=== PATIENT | male | born 1965 | race Caucasian/White ===

== ENCOUNTER 2018-07-11 09:46 | Emergency (ER) | payer SELFPAY ==
[~2018-07-11 09:46] MED LIST: CYCL10TA29 PO; KET10 PO; LOR5/325 PO; OMEP-114 PO; OXYC-865 PO; PENI-24 PO
[2018-07-11] MEDS ORDERED: ACETAMINOPHEN 500 MG TAB PO ONE (10:15)
[2018-07-11] MEDS ORDERED: traMADol 50 MG TAB PO ONE (10:15)
--- NOTE | 2018-07-11 10:28 | EKG ---
FACILITY: [facility] PATIENT NAME: ROBERT MARTÍNEZ : [id number] MR: [id number] V: [id number] EXAM DATE: ORDERING PHYSICIAN: CRISTIAN GRADY TECHNOLOGIST: Test Reason : lightheaded Blood Pressure : / mmHG Vent. Rate : 073 BPM Atrial Rate : 073 BPM P-R Int : 186 ms QRS Dur : 096 ms QT Int : 402 ms P-R-T Axes : 053 022 033 degrees QTc Int : 442 ms Normal sinus rhythm Normal ECG No previous ECGs available Confirmed by DAVIAN TERAN ([id number]) on 07/11/2018 6:55:56 PM Referred By: Confirmed By:DAVIAN TERAN
[2018-07-11 10:32] LABS: PLATELET COUNT, AUTOMATED 263 K/uL (150-450)
--- NOTE | 2018-07-11 10:38 | ER Report ---
History and Physical Time Seen By MD: 09:55 Hx. of Stated Complaint: Pt c/o leg pain radiating from buttocks down leg, also localized to posterior L knee. Also c/o periods of "lost focus" where vision blurred, "almost like I was spinning." First onset of these episodes 1 week ago. HPI/ROS CHIEF COMPLAINT: 1) left leg pain/paresthesias 2) dizziness HISTORY OF PRESENT ILLNESS: Patient presents with 2 chief complaints. Patient noted about 30 minutes after awakening this morning that he had left leg pain that extends from the back of the knee to the hip and includes pain in the deep buttocks. He also noticed is some numbness/paresthesias from the back of the knee to the plantar surface of the foot and laterally. Patient has not had similar symptoms before though he does note ongoing chronic back pain for which he takes ibuprofen daily. 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 Patient also notes that he has had 2 episodes of spinning's and dizziness in the past week. Patient was first at a football game and notes that he had been drinking a couple beers when he developed episode of spinning and was unable to concentrate. States these symptoms lasted for a few hours then ultimately went away. Patient felt fine until last evening when he was sitting and watching a football game. He was again drinking a beer and noticed that he had some spinning and inability concentrate. Patient states he went to bed and symptoms were not present in the morning. Patient denies headache, chest pain, shortness breath or focal weakness or numbness that are associated with these symptoms. Patient has never had similar prior symptoms. Patient has no known family history of stroke a young age or of VTE. Patient has not had cardiac problems in the past. Patient does have history of high blood pressure and was supposed to be on blood pressure medications but has not taken these in a few years. REVIEW OF SYSTEMS: Constitutional: No fever, no chills. Eyes: No discharge. ENT: No sore throat. Cardiovascular: No chest pain, no palpitations. Respiratory: No cough, no shortness of breath. Gastrointestinal: No abdominal pain, no vomiting. Genitourinary: No hematuria. Musculoskeletal: chronic back pain. No new/diff symtpoms. Skin: No rashes. Neurological: No headache. Allergies: Coded Allergies: No Known Drug Allergies (Unverified , 9/21/18) Home Meds Active Scripts Methocarbamol (ROBAXIN) 500 Mg Tablet, 500 MG PO TID for Muscle Relaxant for 7 Days, #30 TAB Prov:CRISTIAN GRADY MD 07/11/18 Hydrochlorothiazide (HYDROCHLOROTHIAZIDE) 25 Mg Tablet, 1 TAB PO QDAY for 30 Days, #30 TAB Prov:CRISTIAN GRADY MD 07/11/18 Reported Medications Ibuprofen (IBUPROFEN) 800 Mg Tablet, 1 TAB PO QAM, TAB 07/11/18 Multivitamin With Minerals (MULTIPLE VITAMIN) 1 Each Tablet, 1 EACH PO DAILY, TAB 07/11/18 Diphenhydramine Hcl (BENADRYL ALLERGY) 25 Mg Tablet, 25 MG PO Q6-8H PRN for ALLERGY SYMPTOMS, TAB 07/11/18 Omeprazole (PRILOSEC) 20 Mg Capsule.dr, 1 TAB PO QDAY TAKE ONE TABLET BY MOUTH ONCE A DAY 12/05/14 Discontinued Scripts Penicillin V Potassium 500 Mg Tab (PENICILLIN V POTASSIUM 500 MG TAB) 500 Mg Tablet, 500 MG PO QID, #40 TAB 0 Refills Prov:AMARJIT BIGGS MD 01/14/15 Ketorolac Tromethamine (KETOROLAC TROMETHAMINE) 10 Mg Tab, 10 MG PO Q6H, #12 TAB 0 Refills Prov:AMARJIT BIGGS MD 01/14/15 Oxycodone Hcl/Acetaminophen (PERCOCET 5-325 MG TABLET) 1 Each Tablet, 1 EACH PO Q4H PRN for PAIN, #15 TAB 0 Refills Prov:AMARJIT BIGGS MD 01/14/15 Oxycodone Hcl/Acetaminophen (PERCOCET 5-325 MG TABLET) 1 Each Tablet, 1 EACH PO Q4-6H PRN for PAIN, #14 Prov:KWASI REYNOLDS MD 12/05/14 Social History of pt drinks 1-2 beers daily, chews tobacco, denies drugs Hx Smoking: No Smoking Status: Never Smoker Exposure to Second Hand Smoke?: No Hx Substance Use Disorder: No Hx Alcohol Use: Yes Constitutional Vital Sign - Last 24 Hours 07/11/18 07/11/18 07/11/18 07/11/18 09:53 09:53 09:55 10:00 Temp 98.1 Pulse 78 Resp 18 B/P (MAP) 174/139 181/124 (143) 182/123 (142) 174/139 (151) Pulse Ox 97 O2 Delivery Room Air 07/11/18 07/11/18 07/11/18 07/11/18 10:01 10:06 10:08 10:11 Pulse 72 75 76 Resp 8 9 13 B/P (MAP) 174/132 (146) Pulse Ox 97 96 96 07/11/18 07/11/18 07/11/18 07/11/18 10:15 10:16 10:21 10:26 Pulse 75 71 70 Resp 14 10 10 B/P (MAP) 160/113 (129) Pulse Ox 95 95 95 07/11/18 07/11/18 07/11/18 07/11/18 10:30 10:31 10:45 10:51 Pulse 69 67 Resp 9 B/P (MAP) 146/118 (127) 151/122 (132) Pulse Ox 96 07/11/18 07/11/18 07/11/18 07/11/18 10:56 11:00 11:01 11:06 Pulse 67 69 63 Resp 11 10 12 B/P (MAP) 154/107 (123) Pulse Ox 95 95 96 07/11/18 07/11/18 07/11/18 07/11/18 11:11 11:15 11:16 11:21 Pulse 63 70 60 Resp 14 11 11 B/P (MAP) 154/106 (122) Pulse Ox 94 96 95 07/11/18 07/11/18 07/11/18 07/11/18 11:26 11:30 11:31 11:36 Pulse 68 69 64 Resp 12 10 10 B/P (MAP) 164/111 (128) Pulse Ox 95 93 96 07/11/18 07/11/18 07/11/18 07/11/18 11:41 11:45 11:46 11:51 Pulse 66 66 63 Resp 12 11 14 B/P (MAP) 170/111 (130) Pulse Ox 94 95 93 07/11/18 07/11/18 07/11/18 07/11/18 11:56 12:00 12:01 12:06 Pulse 64 61 65 Resp 10 9 14 B/P (MAP) 171/122 (138) Pulse Ox 96 95 96 07/11/18 07/11/18 07/11/18 07/11/18 12:11 12:15 12:16 12:21 Pulse 62 66 70 Resp 12 10 14 B/P (MAP) 171/114 (133) 07/11/18 07/11/18 07/11/18 07/11/18 12:26 12:30 12:31 12:36 Pulse 59 70 68 Resp 10 11 19 B/P (MAP) 167/115 (132) 07/11/18 07/11/18 07/11/18 07/11/18 12:45 13:00 13:06 13:15 Pulse 66 Resp 18 B/P (MAP) 166/119 (135) 165/108 (127) 159/120 (133) Physical Exam General Appearance: The patient is alert, has no immediate need for airway protection and no signs of toxicity. [ ] Eyes: Pupils equal and round no pallor or injection. ENT, Mouth: Mucous membranes are moist. Respiratory: There are no retractions, lungs are clear to auscultation. Cardiovascular: Regular rate and rhythm. no m/r/g, no carotid bruit Gastrointestinal: Abdomen is soft and non tender, no masses, bowel sounds normal. No pulsatile abd mass Neurological: alert, oriented x 4; cn ii-xii intact, nl fnf, no ddk, nl reflexes, 5/5 ms ue = le, nl sensation. No aphasia. Skin: Warm and dry, no rashes. Musculoskeletal: Neck is supple non tender. Extremities are nontender, nonswollen and have full range of motion. DIFFERENTIAL DIAGNOSIS: After history and physical exam differential diagnosis was considered for cva, hypertensive emergency, acs, vte, electrolyte disorder, or other emergent etiology Medical Decision Making Data Points Result Diagram: 07/11/18 1025 07/11/18 1025 Laboratory Hematology Test 07/11/18 10:25 Red Blood Count 5.20 M/uL (4.00-5.60) Mean Corpuscular Volume 95.6 fL (80.0-96.0) Mean Corpuscular Hemoglobin 32.9 pg (26.0-33.0) Mean Corpuscular Hemoglobin Concent 34.4 g/dL (32.0-36.0) Red Cell Distribution Width 12.3 % (11.5-14.5) Mean Platelet Volume 8.4 fL (7.2-11.1) Neutrophils (%) (Auto) 62.9 % (39.4-72.5) Lymphocytes (%) (Auto) 22.4 % (17.6-49.6) Monocytes (%) (Auto) 11.5 % (4.1-12.4) Eosinophils (%) (Auto) 2.5 % (0.4-6.7) Basophils (%) (Auto) 0.7 % (0.3-1.4) Nucleated RBC Relative Count (auto) 0.1 /100WBC Neutrophils # (Auto) 3.7 K/uL (2.0-7.4) Lymphocytes # (Auto) 1.3 K/uL (1.3-3.6) Monocytes # (Auto) 0.7 K/uL (0.3-1.0) Eosinophils # (Auto) 0.1 K/uL (0.0-0.5) Basophils # (Auto) 0.0 K/uL (0.0-0.1) Nucleated RBC Absolute Count (auto) 0.01 K/uL Sodium Level 141 mmol/L (137-145) Potassium Level 4.1 mmol/L (3.5-5.0) Chloride Level 101 mmol/L (98-107) Carbon Dioxide Level 29 mmol/L (22-30) Blood Urea Nitrogen 14 mg/dl (9-21) Creatinine 1.00 mg/dl (0.66-1.25) Glomerular Filtration Rate Calc > 60.0 Random Glucose 98 mg/dl (75-110) Calcium Level 8.9 mg/dl (8.4-10.2) Magnesium Level 2.1 mg/dl (1.7-2.2) Total Bilirubin 0.6 mg/dl (0.2-1.3) Aspartate Amino Transf (AST/SGOT) 49 U/L (0-35) Alanine Aminotransferase (ALT/SGPT) 66 U/L (0-56) Alkaline Phosphatase 62 U/L (0-126) Troponin I < 0.012 ng/ml Total Protein 7.8 g/dl (6.3-8.2) Albumin 4.3 g/dl (3.5-5.0) Chemistry Test 07/11/18 10:25 White Blood Count 5.8 k/uL (4.5-11.0) Red Blood Count 5.20 M/uL (4.00-5.60) Hemoglobin 17.1 g/dL (14.0-18.0) Hematocrit 49.7 % (42.0-52.0) Mean Corpuscular Volume 95.6 fL (80.0-96.0) Mean Corpuscular Hemoglobin 32.9 pg (26.0-33.0) Mean Corpuscular Hemoglobin Concent 34.4 g/dL (32.0-36.0) Red Cell Distribution Width 12.3 % (11.5-14.5) Platelet Count 263 K/uL (150-450) Mean Platelet Volume 8.4 fL (7.2-11.1) Neutrophils (%) (Auto) 62.9 % (39.4-72.5) Lymphocytes (%) (Auto) 22.4 % (17.6-49.6) Monocytes (%) (Auto) 11.5 % (4.1-12.4) Eosinophils (%) (Auto) 2.5 % (0.4-6.7) Basophils (%) (Auto) 0.7 % (0.3-1.4) Nucleated RBC Relative Count (auto) 0.1 /100WBC Neutrophils # (Auto) 3.7 K/uL (2.0-7.4) Lymphocytes # (Auto) 1.3 K/uL (1.3-3.6) Monocytes # (Auto) 0.7 K/uL (0.3-1.0) Eosinophils # (Auto) 0.1 K/uL (0.0-0.5) Basophils # (Auto) 0.0 K/uL (0.0-0.1) Nucleated RBC Absolute Count (auto) 0.01 K/uL Glomerular Filtration Rate Calc > 60.0 Calcium Level 8.9 mg/dl (8.4-10.2) Magnesium Level 2.1 mg/dl (1.7-2.2) Total Bilirubin 0.6 mg/dl (0.2-1.3) Aspartate Amino Transf (AST/SGOT) 49 U/L (0-35) Alanine Aminotransferase (ALT/SGPT) 66 U/L (0-56) Alkaline Phosphatase 62 U/L (0-126) Troponin I < 0.012 ng/ml Total Protein 7.8 g/dl (6.3-8.2) Albumin 4.3 g/dl (3.5-5.0) EKG/Imaging EKG Interpretation 12 lead EKG: Rhythm: Normal sinus rhythm [place]: Normal QRS: Normal ST segments: Normal Monitor Interpretation: Normal Sinus Rhythm ED Course/Re-evaluation ED Course Pt presents with what initially appear to be 2 distinct symptoms 1) LLE findings c/w poss sciatica; considered cva but nl neuro exam despite sympotms. Will manage supportively. Pt improved in ED and ambulates with minimal discomfort on d/c. 2) vertigo/dizziness concerning for htn encephalopathy given pt's uncontrolled blood pressure; ed eval to r/o cva/end organ damage. After ED evaluation, re- evaluation, no e/o end organ damage, and htn improves spontaneously. Pt does not have recurrence of symptoms in ED. 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 Decision to Disposition Date: Jul 12, 2018 Decision to Disposition Time: 13:15 Depart Departure Latest Vital Signs Vital Signs Date Time Temp Pulse Resp B/P (MAP) Pulse Ox O2 Delivery O2 Flow Rate FiO2 07/11/18 13:15 159/120 (133) 07/11/18 13:06 66 18 07/11/18 12:06 96 07/11/18 09:53 98.1 Room Air Impression: Primary Impression: Sciatica Additional Impression: Hypertension Condition: Improved Disposition: HOME OR SELF-CARE New Scripts Methocarbamol (ROBAXIN) 500 Mg Tablet 500 MG PO TID for Muscle Relaxant for 7 Days, #30 TAB Prov: CRISTIAN GRADY MD 07/11/18 Hydrochlorothiazide (HYDROCHLOROTHIAZIDE) 25 Mg Tablet 1 TAB PO QDAY for 30 Days, #30 TAB Prov: CRISTIAN GRADY MD 07/11/18 Patient Instructions: Abuse of Alcohol (ED), Hypertension (ED), Sciatica (ED) Additional Instructions: As we discussed; start the blood pressure medication; hctz (hydrochlorothiazide) but follow up with your primary doctor as soon as possible 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 Return for new/different or concerning symptoms. Problem Qualifiers Primary Impression: Sciatica Laterality: left Qualified Codes: M54.32 - Sciatica, left side Additional Impression: Hypertension Hypertension type: unspecified Qualified Codes: I10 - Essential (primary) hypertension CRISTIAN GRADY MD Jul 11, 2018 10:38
[2018-07-11] MEDS ORDERED: MULT-1335 PO (10:54)
[2018-07-11] MEDS ORDERED: IBUP800T37 PO (10:54)
[2018-07-11] MEDS ORDERED: DIPH-741 PO (10:54)
--- NOTE | 2018-07-11 10:55 | RADIOLOGY IMAGING REPORT ---
FACILITY: [facility] - [place] PATIENT NAME: Raza Chacon : 1965 MR: [id number] V: [id number] EXAM DATE: ORDERING PHYSICIAN: CRISTIAN GRADY TECHNOLOGIST: Location[place] [facility] [place] Patient: Raza Chacon : 1965 Visit/Account:[id number] Date of Sevice: 07/11/2018 Study: Frontal and lateral views of the chest Indication: Cough Comparison study: None Findings: PA and lateral views of the chest demonstrate no evidence of acute infiltrate. There is no evidence of pleural effusion. There is no evidence of pneumothorax. The mediastinal, cardiac, and diaphragmatic contours are unremarkable. The visualized bony structures are unremarkable. IMPRESSION: Unremarkable chest. Report Dictated By: Gabe Atkinson at 07/11/2018 10:50 AM Report E-Signed By: Gabe Atkinson at 07/11/2018 10:51 AM WSN:[id number]
--- NOTE | 2018-07-11 11:04 | RADIOLOGY IMAGING REPORT ---
FACILITY: [facility] PATIENT NAME: Raza Chacon : 1965 MR: [id number] V: [id number] EXAM DATE: ORDERING PHYSICIAN: CRISTIAN GRADY TECHNOLOGIST: Location: [facility] - [place] Patient: Raza Chacon : 1965 Visit/Account:[id number] Date of Sevice: 07/11/2018 EXAMINATION: CT Head without intravenous contrast HISTORY: Altered mental status. TECHNIQUE: Axial images were obtained from the skull base to the vertex without intravenous contrast . Sagittal and coronal reformatted images are also submitted. One of the following dose optimization techniques was utilized in the performance of this exam: Autom ated exposure control; adjustment of the mA and/or kV according to the patient's size; or use of an i terative reconstruction technique. Specific details can be referenced in the facility's radiology C T exam operational policy. COMPARISON: None available. FINDINGS: Brain volume: Normal. Ventricles: Negative. Acute ischemic changes: None. Hemorrhage: None. Masses / edema: None. Daniel-white: Negative. White matter: Negative. Vessels: Negative. Extra-axial: Negative. Calvarium / skull base: Negative. Visualized sinuses / orbits: Mild left mastoid effusion. Mild mucosal thickening in the ethmoid air cells and sphenoid sinuses. IMPRESSION: No acute intracranial abnormality. Report Dictated By: Ernie Seo MD at 07/11/2018 10:55 AM Report E-Signed By: Ernie Seo MD at 07/11/2018 10:59 AM WSN:[id number]
[2018-07-11] MEDS ORDERED: KETOROLAC 15 MG/ML VIAL IVP ONE (11:30)
--- NOTE | 2018-07-11 13:00 | RADIOLOGY IMAGING REPORT ---
FACILITY: [facility] PATIENT NAME: Raza Chacon : 1965 MR: [id number] V: [id number] EXAM DATE: ORDERING PHYSICIAN: CRISTIAN GRADY TECHNOLOGIST: Location: [facility] - [place] Patient: Raza Chacon : 1965 Visit/Account:[id number] Date of Sevice: 07/11/2018 VENOUS DOPP LOW LEFT EXTREMITY HISTORY: popliteal pain , left posterior knee pain since 0600 hours Concern for deep venous thrombus . COMPARISON: None. FINDINGS: Grayscale, duplex and color Doppler interrogation of the left lower extremity deep veins from common femoral vein to proximal calf was completed. Compression was performed where it was possible. The rig ht common femoral vein was evaluated using similar technique. After an indeterminate structure was noted on image 31 of the initial acquisition I requested that e manager placement obtain additional images. Common femoral vein - Negative. Femoral vein - Negative. Deep femoral vein - Negative. Popliteal vein - Negative. Visualized deep calf veins - Negative. Popliteal fossa: No evidence of a Cage's cyst or mass. Within the posterior musculature labeled "lef t posterior knee superficial vein" there is a paired artery/vein, both patent, exact anatomic locatio n unclear on the basis of ultrasound, perhaps gastrocnemius artery/vein. The vein is significantly la rger than the artery consistent with an intramuscular varicosity. Contralateral (right) common femoral vein: Negative. IMPRESSION: 1. No evidence of acute deep venous thrombosis in the visualized veins of the left lower extremity. 2. Patent intramuscular venous varicosity in the left posterior knee soft tissues. Report Dictated By: Anibal Díaz at 07/11/2018 12:25 PM Report E-Signed By: Anibal Díaz at 07/11/2018 12:55 PM WSN:[id number]
[2018-07-11] MEDS ORDERED: HYDR-2966 PO (13:07)
[2018-07-11] MEDS ORDERED: METH-542 PO (13:07)
[2018-07-11 13:15] VITALS: BP 159/120
== END 2018-07-11 13:22 | disposition home or self-care (01) ==
LOC: ER 09:59
DX: M54.32 Sciatica, left side (principal); I10 Essential (primary) hypertension
CPT/HCPCS: 70450; 71046; 83735; 84484; 85025; 93005; 93971; 96374; 99285; J1885; 82040; 82247; 82310; 82374; 82435; 82565; 82947; 84075; 84132; 84155; 84295; 84450; 84460; 84520

== ENCOUNTER 2019-03-30 00:33 | Emergency (ER) | payer OTHER ==
[~2019-03-30 00:33] MED LIST changes: +DIPH-741 PO; +HYDR-2966 PO; +IBUP800T37 PO; +METH-542 PO; +MULT-1335 PO
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
[2019-03-30 02:14] LABS: PLATELET COUNT, AUTOMATED 290 K/uL (150-450)
--- NOTE | 2019-03-30 03:21 | RADIOLOGY IMAGING REPORT ---
FACILITY: [facility] [place] PATIENT NAME: Raza Chacon : 1965 MR: [id number] V: [id number] EXAM DATE: ORDERING PHYSICIAN: AMARJIT BIGGS TECHNOLOGIST: Location: [facility] [place] Patient: Raza Chacon : 1965 Visit/Account:[id number] Date of Sevice: 03/30/2019 SACRUM COCCYX HISTORY: Tailbone pain. No known injury. COMPARISON: Prior lumbar spine x-rays 08/05/2014. Lumbar spine x-rays were performed at the same time as the current examination. TECHNIQUE: AP and lateral views of the sacrum and coccyx. FINDINGS: There is no fracture or dislocation. There is anterior curvature of the coccyx, unchanged. No bony erosion or destruction. The sacroiliac joints are patent without widening. There is no pubic diastases. There are pelvic phle boliths. IMPRESSION: 1. No acute osseous abnormality of the sacrum or coccyx. Report Dictated By: Zoraida Bashir at 03/30/2019 3:14 AM Report E-Signed By: Zoraida Bashir at 03/30/2019 3:16 AM WSN:[id number]
--- NOTE | 2019-03-30 03:22 | RADIOLOGY IMAGING REPORT ---
FACILITY: [facility] - [place] PATIENT NAME: Raza Chacon : 1965 MR: [id number] V: [id number] EXAM DATE: ORDERING PHYSICIAN: AMARJIT BIGGS TECHNOLOGIST: Location: [facility] Patient: Raza Chacon : 1965 Visit/Account:[id number] Date of Sevice: 03/30/2019 LUMBAR SPINE 2 OR 3 VIEW HISTORY: Tailbone pain. No injury. COMPARISON: Lumbar spine x-rays 08/05/2014. Sacrum and coccyx x-rays were performed at the same time as the current examination. TECHNIQUE: AP, lateral, and coned lateral views of the lumbar spine. FINDINGS: There are 5 nonrib-bearing lumbar type vertebral bodies. Vertebral body heights are maintai diana. There is straightening of the normal lumbar lordosis, unchanged. There is multilevel degenerativ e disc disease that has mildly progressed. Greatest loss of disc height is at L4-5, where it is moder ate to severe. IMPRESSION: 1. Progression of degenerative changes, but no acute osseous abnormality of the lumbar spine. Report Dictated By: Zoraida Bashir at 03/30/2019 3:16 AM Report E-Signed By: Zoraida Bashir at 03/30/2019 3:18 AM WSN:[id number]
[2019-03-30 03:36] VITALS: BP 120/95
--- NOTE | 2019-03-30 03:42 | BHS - Psychiatric Evaluation ---
ER - Title 25 MHE Evaluation Title 25 Evaluation Patient Detained By: Law Enforcement Referral Source: [facility] who [facility] Date Patient Detained: Mar 30, 2019 Time Patient Detained: 00:36 Date Penitentiary Expires: Apr 02, 2019 Time Penitentiary Expires: 00:36 Legal Status: Police Hold: No Legal Status: Residence: [facility] Resident, State Resident Assessment Data Provided By: Patient, Law Enforcement HPI/ROS: CHIEF COMPLAINT: emergency retirement, suicide ideation HISTORY OF PRESENT ILLNESS: This is a 53 year old male. He has been suicidal for a long time now. Feeling hopeless, to the point where he does not think there is much that can be done. He drank bleach and took a large amount of Xanax several days ago. Said it made him sleepy for a few days. He does drink alot on a chronic basis. He took a bunch of cold medicines a few days ago, no effect. Today drinking heavily and was going to try to kill himself with a knife, but was unable to do it. [facility], who [facility], who brought him here. He is on emergency retirement. He is cooperative and willing to receive help, but does not think it will do any good. He did have a fall a few days ago and has severe tailbone and lower back pain. Chronic sinus problems, otherwise negative REVIEW OF SYSTEMS: Respiratory: No cough, no dyspnea. Cardiovascular: No chest pain, no palpitations. Gastrointestinal: No vomiting, no abdominal pain. Musculoskeletal: As above. Admit due to SI or Attempt: Yes Suicide Plan: Has Plan with Access Alcohol or Drugs Involved: Yes Is Patient Info Reliable: Yes Is Collateral Info Reliable: Yes Mental Status Exam General Appearance: Good Eye Contact, Cooperative, Polite Speech: Spontaneous, Normal Rate, Normal Rhythm, Normal Volume, Normal Tone Mood: Dysthmic/Depressed Affect: Sad Thought Process: Organized, Logical Thought Content: Suicidal Ideation; No Homicidal Ideation Sensorium: Other Cognition: Alert & Oriented-Person, Alert & Oriented-Place, Alert & Oriented- Time, Cscup-Yteemtqs-Ekszeumfi Insight Judgment: Fair Current Risk & History Current Dangerous Risk Assessm: Current Suicide Ideation, Self-Injurious Behaviors Past Dangerous Risk Assessm: Suicide Ideation-last 6mo, Suicide Attempts-last 6mo, Self-Injurious Behaviors Previous Suicide Attempt: Past - High Lethality Previous Psychiatric Illness: Yes Previous Psychiatric Treatment: Yes Risk Assessment & Disposition Evaluated Risk Assessment: patient has multiple attempts as noted, hopeless feeling Impression: Primary Impression: Suicidal ideation Additional Impression: Low back pain Meets Mental Illness Req.: Yes Meets Dangerousness Req.: Yes Emergency Penitentiary to be: Upheld Date of Decision: Mar 30, 2019 Time of Decision: 02:26 Patient is Medically Stable at: Yes Disposition: [facility] Problem Qualifiers Additional Impression: Low back pain Chronicity: acute Back pain laterality: bilateral Sciatica presence: without sciatica Qualified Codes: M54.5 - Low back pain AMARJIT BIGGS MD Mar 30, 2019 03:42
[2019-03-31] MEDS ORDERED: OMEP-218 PO (13:42)
[2019-03-31] MEDS ORDERED: MULT1CAP59 PO (13:42)
[2019-03-31] MEDS ORDERED: DIPH-740 PO (13:42)
[2019-03-31] MEDS ORDERED: IBUP-56 PO (13:42)
== END 2019-03-30 03:45 ==
LOC: ER 01:18 → EDBEDREQTM 03:32 → ER 03:45
DX: R45.851 Suicidal ideations (principal); F10.10 Alcohol abuse, uncomplicated; Y90.6 Blood alcohol level of 120-199 mg/100 ml; M54.5 Low back pain
CPT/HCPCS: 36415; 72100; 72220; 80305; 80320; 80329; 81001; 82040; 82247; 82310; 82374; 82435; 82565; 82947; 83735; 84075; 84132; 84155; 84295; 84443; 84450; 84460; 84520; 85025; 99284

== ENCOUNTER 2019-03-30 02:01 | Inpatient (IN) | payer OTHER ==
[2019-03-29 08:49] VITALS: BP 141/96
[~2019-03-30] VITALS: Ht 185.4 cm; Wt 129.3 kg
[2019-03-30 04:38] VITALS: BP 146/113
[2019-03-30] MEDS ORDERED: ACETAMINOPHEN 325 MG TAB PO PRN (05:20)
[2019-03-30] MEDS ORDERED: MAG HYD/AL HYD/SIMETH 30ML UDC PO PRN (05:20)
[2019-03-30] MEDS: MULTIVITAMINS TAB PO SCH (08:47)
[2019-03-30] MEDS ORDERED: DIAZEPAM 10 MG TAB PO PRN (11:00)
[2019-03-30] MEDS: DIAZEPAM 10 MG TAB PO PRN ×2 (11:49→21:08)
[2019-03-30] MEDS ORDERED: DULoxetine HCL 30 MG CAPCR PO ONE (12:00)
[2019-03-30] MEDS: PANTOPRAZOLE SOD 20 MG TABEC PO SCH (12:33)
[2019-03-30] MEDS ORDERED: SALINE 0.65% NAS SPR 44 ML BTL PRN (13:00)
[2019-03-30 13:14] VITALS: BP 135/85
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
[2019-03-31 03:20] VITALS: BP 130/84
[2019-03-31] MEDS: DIAZEPAM 10 MG TAB PO PRN (03:23)
[2019-03-31 07:15] VITALS: BP 124/78
[2019-03-31] MEDS: DULoxetine HCL 30 MG CAPCR PO SCH (08:18)
[2019-03-31] MEDS: MULTIVITAMINS TAB PO SCH (08:18)
[2019-03-31] MEDS: PANTOPRAZOLE SOD 20 MG TABEC PO SCH (08:18)
[2019-03-31 11:20] VITALS: BP 128/86
[2019-03-31] MEDS ORDERED: DIPH-740 PO (13:42)
[2019-03-31] MEDS ORDERED: IBUP-56 PO (13:42)
[2019-03-31] MEDS ORDERED: OMEP-218 PO (13:42)
[2019-03-31] MEDS ORDERED: MULT1CAP59 PO (13:42)
--- NOTE | 2019-03-31 14:19 | BHS Progress Note ---
[facility] - Subjective Progress Notes Subjective Pt seen in conference room with team. Pt reports improved mood today, rating depression at 4/10, and denies SI today. Tolerating cymbalta well without SE. Slept well last night. He is still detoxing but sx's have been mild. He felt well supported by an AA meeting yesterday run here on the unit by a volunteer from . In response to our concern that he has been extremely isolated (one of his several high risk factors for suicide) he did agree to involve his brother and his step son in treatment team meeting tomorrow. His back pain is actually a little better this am, so we will forgo neurontin and continue to titrate cymbalta. His continuous pulse ox did show possible concern for sleep apnea, so we recommended he follow up with a sleep study after discharge. Suicidal Ideation: Resolving Homicidal Ideation: None [facility] - Objective Physical Exam Vital Signs Vital Signs 03/31/19 03/31/19 07:15 11:20 Temp 97.1 Pulse 61 Resp 18 B/P (MAP) 128/86 (100) Pulse Ox 94 O2 Delivery Room Air Muscle Strength and Tone: WNL Gait and Station: Steady BH Medications Reviewed: Side Effects, Benefits of Medication, Risks Mental Status Exam General Appearance: Casual, Well Groomed, Good Eye Contact, Cooperative, P olite, Good Interaction, Tearful Speech: Clear, Spontaneous, Normal Rate, Normal Rhythm, Normal Volume, Normal Tone Mood: Dysthmic/Depressed Affect: Calm, Sad Thought Process: Organized, Logical, Goal Directed, Loose Associations, Flight of Ideas, Other Thought Content: Suicidal Ideation (resolving); No Homicidal Ideation, No Delusions, No Auditory Halllucinations, No Visual Hallucinations, No Thought Broadcasting, No Ideas of Reference, No Obsessions, No Compulsions, No Other Sensorium: Clear Cognition: Alert & Oriented-Person, Alert & Oriented-Place, Alert & Oriented- Time, Qoovi-Rjgmqtge-Wlcvvyhgv Memory: Immediate, Recent, Remote Intelligence: Average Insight Judgment: Fair [facility] Assessment and Plan Yspg-xx-Iwne Encounter Date: Mar 31, 2019 Csbh-va-Vaif Encounter Time: 11:00 [facility] Plan: Necessary Precautions, Individual/Group Therapy, Admin/Titrate Meds, Educate Patient Tobacco Medications: Not Appropriate Condition Multpiple Antipsychotics Used: No Problems: (1) Alcohol use disorder, severe, dependence (2) Alcohol withdrawal (3) Depressive disorder, not elsewhere classified ROLLY OTT MD Mar 31, 2019 14:19
[2019-04-01 05:05] VITALS: BP 135/93
[2019-04-01] MEDS: MULTIVITAMINS TAB PO SCH (08:21)
[2019-04-01] MEDS: DULoxetine HCL 30 MG CAPCR PO SCH (08:21)
[2019-04-01] MEDS: PANTOPRAZOLE SOD 20 MG TABEC PO SCH (08:21)
--- NOTE | 2019-04-01 12:29 | BHS Progress Note ---
[facility] - Subjective Progress Notes Subjective Pt seen in treatment team with his brother Terrell and step-son Nic on speaker phone. Pt got very tearful talking to them-- they were very supportive, encouraging him to lean on them, and pt very emotional and grateful. Pt rating depression at 4/10. Tolerating cymbalta well; will increase dose tomorrow to 90 mg. Pt c/o poor sleep last night-- will try with melatonin tonight. Pt still [facility] 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 Detox is complete-- will stop CIWA. Need to get him up to 120 mg of cymbalta, then tentative DC Saturday-- family will come to support him this weekend. Suicidal Ideation: None Homicidal Ideation: None [facility] - Objective Physical Exam Vital Signs Vital Signs 04/01/19 05:05 Temp 98.4 Pulse 67 Resp 15 B/P (MAP) 135/93 (107) Pulse Ox 91 O2 Delivery Room Air Muscle Strength and Tone: WNL Gait and Station: Steady [facility] Medications Reviewed: Side Effects, Benefits of Medication, Risks Mental Status Exam General Appearance: Casual, Well Groomed, Good Eye Contact, Cooperative, Polite, Good Interaction, Tearful Speech: Clear, Spontaneous, Normal Rate, Normal Rhythm, Normal Volume, Normal Tone Mood: Dysthmic/Depressed Affect: Calm, Sad Thought Process: Organized, Logical, Goal Directed, Loose Associations, Flight of Ideas, Other Thought Content: Suicidal Ideation (resolving); No Homicidal Ideation, No Delusions, No Auditory Halllucinations, No Visual Hallucinations, No Thought Broadcasting, No Ideas of Reference, No Obsessions, No Compulsions, No Other Sensorium: Clear Cognition: Alert & Oriented-Person, Alert & Oriented-Place, Alert & Oriented-Time, Viisa-Ukdsnacb-Yvgezqudr Memory: Immediate, Recent, Remote Intelligence: Average Insight Judgment: Fair [facility] Assessment and Plan Mwbj-yy-Bgnc Encounter Date: Apr 01, 2019 Ddzs-os-Wpnc Encounter Time: 10:00 [facility] Plan: Necessary Precautions, Individual/Group Therapy, Admin/Titrate Meds, Educate Patient Tobacco Medications: Not Appropriate Condition Multpiple Antipsychotics Used: No Problems: (1) Alcohol use disorder, severe, dependence (2) Alcohol withdrawal (3) Depressive disorder, not elsewhere classified ROLLY OTT MD Apr 01, 2019 12:29
--- NOTE | 2019-04-01 15:15 | Medical Nutrition Therapy ---
Nutrition Anthropometrics Height (Inches): 73 (Stated Height) Weight (Pounds): 285 Weight (Calculated Kilograms): 129.274 BMI: 36 Hx Weight Loss: Yes (Pt trying to lose weight intentionally) Sanju Nutrition Score: Adequate Sanju Nutrition Risk Score: 21 Dietary Referral Nutrition Risk Factors: Nutrition Risk Comment: Physical Findings Physical Appearance: Obese BMI 30-39 Skin Appearance Skin Appearance: Edema Edema Location Modifier: Edema Location: Type of Edema: Degree of Edema: Gastrointestinal Symptoms GI Symtoms: Tube Present: Bowel Sounds: Recent Bowel Pattern: Stool Characteristics: Nutrition/Food History Good Skipped Meals: No Nutritional Diagnosis Nutritional Acuity: 4-Low Energy Requirement: 2776 Protein Requirement: 124 Fluid Requirement: 2000 Nutrition Monitoring & Eval Nutrition Follow-Up: Good Intake RD Patient Assessment Time: [address] Assessment Type: RD Education Patient Nutrition Acuity: 4-Low Follow Up Date: Apr 08, 2019 Nutritional Comment: 04/01/19-Recieved a referral for wt loss. Reviewed medical records and past weights. Discussed with pt, he is intentionally trying to lose weight. He reported losing about 20 lbs from his highest self reported wt of 290 lbs. Discussed importance of eating plenty of protein to preserve lean body mass during wt loss. Pt had no other concerns at this time. Will remain available prn. GLEN COTE Apr 01, 2019 15:15
[2019-04-01 20:35] VITALS: BP 132/84
[2019-04-01] MEDS: MELATONIN 3 MG TAB PO SCH (20:50)
[2019-04-02 05:19] VITALS: BP 118/78
[2019-04-02] MEDS: DULoxetine HCL 30 MG CAPCR PO SCH (08:13)
[2019-04-02] MEDS: PANTOPRAZOLE SOD 20 MG TABEC PO SCH (08:13)
[2019-04-02] MEDS: MULTIVITAMINS TAB PO SCH (08:13)
--- NOTE | 2019-04-02 10:49 | BHS Progress Note ---
S - Subjective Progress Notes Subjective Pt seen in conference room with team. Pt. is reporting feeling "foggy" this am, a little difficulty concentrating. Depression is down to 2/10, he is more forward-thinking, more hopeful. Still trying to organize his outpatient care, [facility] will [facility] today. I had hoped to get cymbalta up to 120mg but I think his poor conc'n may be due to same, so will leave dose the same. Slept better last night with melatonin, so will continue at 9 mg. Working towards discharge tomorrow if we can get [facility] follow [facility]. Suicidal Ideation: None Homicidal Ideation: None S - Objective Physical Exam Vital Signs Vital Signs 04/02/19 05:19 Temp 98.5 Pulse 67 Resp 15 B/P (MAP) 118/78 (91) Pulse Ox 92 O2 Delivery Room Air Muscle Strength and Tone: WNL Gait and Station: Steady [facility] Medications Reviewed: Side Effects, Benefits of Medication, Risks Mental Status Exam General Appearance: Casual, Well Groomed, Good Eye Contact, Cooperative, Polite, Good Interaction, Tearful Speech: Clear, Spontaneous, Normal Rate, Normal Rhythm, Normal Volume, Normal Tone Mood: Dysthmic/Depressed Affect: Calm, Sad Thought Process: Organized, Logical, Goal Directed Thought Content: No Suicidal Ideation, No Homicidal Ideation, No Delusions, No Auditory Halllucinations, No Visual Hallucinations, No Thought Broadcasting, No Ideas of Reference, No Obsessions, No Compulsions, No Other Sensorium: Clear Cognition: Alert & Oriented-Person, Alert & Oriented-Place, Alert & Oriented- Time, Pmdzr-Vyobgzvv-Zjlzrygty Memory: Immediate, Recent, Remote Intelligence: Average Insight Judgment: Fair [facility] Assessment and Plan Wvrw-ge-Stkb Encounter Date: Apr 02, 2019 Vivb-gm-Cquh Encounter Time: 09:00 [facility] Plan: Necessary Precautions, Individual/Group Therapy, Admin/Titrate Meds, Educate Patient Tobacco Medications: Not Appropriate Condition Multpiple Antipsychotics Used: No Problems: (1) Alcohol use disorder, severe, dependence (2) Alcohol withdrawal (3) Depressive disorder, not elsewhere classified ROLLY OTT MD Apr 02, 2019 10:49
[2019-04-02 18:19] VITALS: BP 118/88
[2019-04-02] MEDS: MELATONIN 3 MG TAB PO SCH (20:53)
[2019-04-03 03:44] VITALS: BP 128/97
[2019-04-03] MEDS: MULTIVITAMINS TAB PO SCH (08:24)
[2019-04-03] MEDS: PANTOPRAZOLE SOD 20 MG TABEC PO SCH (08:25)
[2019-04-03] MEDS: DULoxetine HCL 30 MG CAPCR PO SCH (08:25)
[2019-04-03] MEDS ORDERED: DULO30CA35 PO (10:18)
[2019-04-03] MEDS ORDERED: SODI88SP NS (13:18)
[2019-04-03] MEDS ORDERED: MELA3TAB31 PO (13:19)
[2019-04-03] MEDS ORDERED: DISU250T5 PO (13:20)
[2019-04-03] MEDS ORDERED: NALT50TA15 PO (13:24)
[2019-04-03 14:45] VITALS: BP 132/94
--- NOTE | 2019-04-03 14:51 | BHS Discharge Summary ---
[facility] Discharge Summary Yojv-my-Fbqj Encounter Date: Apr 03, 2019 Qnyx-wl-Bzia Encounter Time: 09:55 Reason-Hosp/Final Diag (DSM-V): (1) Alcohol use disorder, severe, dependence Hospital Course & Plan: DATE OF ADMISSION: March 30, 2019 The patient was interviewed on 03/30/2019 at 11 a.m. for this history and physical. ATTENDING PHYSICIAN Rolly Ott MD CHIEF COMPLAINT "I made a phone call I shouldn't have. I'm not very strong, I guess. I've been suicidal for three months now." HISTORY OF PRESENT ILLNESS This is the first-ever psychiatric inpatient admission for this 53-year-old male , who has a past history of alcohol use disorder and depression, and who has had suicidal ideation with a couple of suicide attempts in the last two or three months. He is here on an involuntary prison filed by the police for danger to self. Last night, he was alone at home and drank about 12 beers, which is pretty standard for him. All of a sudden, he was holding a knife and wanting to cut his throat or stab himself. He called the [place] suicide hotline and they notified the local police, who arrived and detained the patient on a [place] 25 and brought him to the emergency room. The patient was cooperative in the ER and was admitted without incident to [facility]. The patient has had nearly lifelong history of drinking. He also reports about a seven- or eight-year history of depression. 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 He reports several losses due to drinking, including his daughters, who will not talk with him. He says he has isolated himself more and more over the past couple of years, such that he goes to work but then comes home, buys beer or hard liquor, and goes home and drinks alone. A week ago, he drank two cases of beer and a fifth of hard liquor and then had a suicide attempt by overdose on 12 wzdk-uzc-xfakwjl cold medication tablets. PAST PSYCHIATRIC HISTORY The patient has never had an inpatient psychiatric admission. He has never had outpatient treatment for depression. He has, however, had several residential alcohol rehab treatment programs. The most recent one was a six-month program in [place], which he completed 15 years ago. These treatment programs were usually court-ordered because he has a history of seven DUIs in the past. He has one prior suicide attempt seven or eight years ago, when he overdosed on an entire bottle of Xanax, which he drank with a cup of bleach. He did not receive any treatment after that attempt. HOSPITAL COURSE Pt was admitted to [facility] and maintained on suicide precautions. He was cooperative with treatment and all groups and individual therapies. He was detoxed using valium as per [facility] protocol, and detox was uncomplicated. He started cymbalta for depression, and this was titrated to 90 mg q am, and was well tolerated. We added melatonin for sleep which was helpful. [facility] and [facility] approved follow up at [facility]. We checked an overnight pulse ox which showed possible sleep apnea, and [facility]. He met with AA members and attended a small AA meeting here on the unit. He reconnected with his brother and son, and also had visits from his neighbors. His mood improved considerably, and he was discharged in stable condition without SI. (2) Persistent depressive disorder (3) Posttraumatic stress disorder Physical Exam Latest Vital Signs Vital Signs 04/03/19 03:44 Temp 98.0 Pulse 64 Resp 15 B/P (MAP) 128/97 (107) Pulse Ox 92 O2 Delivery Room Air Mental Status Exam General Appearance: Casual, Well Groomed, Good Eye Contact, Cooperative, Polite, Good Interaction Speech: Clear, Spontaneous, Normal Rate, Normal Rhythm, Normal Volume, Normal Tone Mood: Euthymic Affect: Full and Appropriate, Calm Thought Process: Organized, Logical, Goal Directed Thought Content: No Suicidal Ideation, No Homicidal Ideation, No Delusions, No Auditory Halllucinations, No Visual Hallucinations, No Thought Broadcasting, No Ideas of Reference, No Obsessions, No Compulsions, No Other Sensorium: Clear Cognition: Alert & Oriented-Person, Alert & Oriented-Place, Alert & Oriented- Time, Upyel-Rbgegpyt-Zuyqhnjro Memory: Immediate, Recent, Remote Intelligence: Average Insight Judgment: Fair Departure Item Value Date Time White Blood Count 6.3 k/uL 03/30/19 0156 Red Blood Count 5.22 M/uL 03/30/19 0156 Hemoglobin 17.2 g/dL 03/30/19 0156 Hematocrit 48.8 % 03/30/19 015 Mean Corpuscular Volume 93.5 fL 03/30/19 015 Mean Corpuscular Hemoglobin 32.9 pg 03/30/19 015 Mean Corpuscular Hemoglobin Concent 35.2 g/dL 03/30/19 015 Red Cell Distribution Width 12.3 % 03/30/19 015 Platelet Count 290 K/uL 03/30/19 015 Sodium Level 141 mmol/L 03/30/19 0156 Potassium Level 4.2 mmol/L 03/30/19 0156 Chloride Level 101 mmol/L 03/30/19 0156 Carbon Dioxide Level 24 mmol/L 03/30/19 015 Blood Urea Nitrogen 10 mg/dl 03/30/19 0156 Creatinine 1.00 mg/dl 03/30/19 015 Glomerular Filtration Rate Calc > 60.0 03/30/19 015 Random Glucose 100 mg/dl 03/30/19 0156 Calcium Level 9.1 mg/dl 03/30/19 0156 Magnesium Level 2.2 mg/dl 03/30/19 0156 Total Bilirubin 0.5 mg/dl 03/30/19 0156 Aspartate Amino Transf (AST/SGOT) 52 U/L H 03/30/19 0156 Alanine Aminotransferase (ALT/SGPT) 77 U/L H 03/30/19 0156 Alkaline Phosphatase 83 U/L 03/30/19 0156 Troponin I < 0.012 ng/ml 07/11/18 1025 Total Protein 8.3 g/dl H 03/30/19 0156 Albumin 4.6 g/dl 03/30/19 0156 Thyroid Stimulating Hormone (TSH) 4.30 uIU/ml 03/30/19 0156 Urine Color Straw 03/30/19 0121 Urine Clarity Clear 03/30/19 012 Urine pH 6.0 pH 03/30/19 0121 Urine Specific [place] 1.000 03/30/19 0121 Urine Protein Negative mg/dL 03/30/19 012 Urine Glucose (UA) Negative mg/dL 03/30/19 012 Urine Ketones Negative mg/dL 03/30/19 012 Urine Blood Negative 03/30/19 012 Urine Nitrite Negative 03/30/19 012 Urine Bilirubin Negative 6/10/19 0121 Urine Urobilinogen 0.2 mg/dL 03/30/19 012 Urine Leukocyte Esterase Negative 03/30/19 012 Urine RBC <1 /HPF 03/30/19120 Urine WBC <1 /HPF 03/30/19 012 Urine Squamous Epithelial Cells None /LPF 03/30/19 012 Urine Bacteria Negative /HPF 03/30/19 012 Urine Mucus None /HPF 03/30/19 012 Salicylates Level < 10 mg/L 03/30/19 015 Salicylate Last Dose Date unk 03/30/19 0156 Urine Opiates Screen Negative 03/30/19 012 Acetaminophen Level < 10 ug/ml 03/30/19 015 Urine Barbiturates Screen Negative 03/30/19 0121 Ur Tricyclic Antidepressants Screen Negative 03/30/19 012 Urine Phencyclidine Screen Negative 03/30/19 012 Urine Amphetamines Screen Negative 03/30/19 012 Urine Benzodiazepines Screen Negative 03/30/19 012 Urine Cocaine Screen Negative 03/30/19120 Urine Cannabinoids Screen Positive 03/30/19 0121 Serum Alcohol 184 mg/dl 03/30/19 0156 Condition: Improved Discharge to: Home Discharge Instructions Home Meds Reported Medications Naltrexone Hcl (NALTREXONE HCL) 50 Mg Tablet, 50 MG PO QAM, #30 2 Refills 04/03/19 Disulfiram (DISULFIRAM) 250 Mg Tablet, 250 MG PO QHS, #30 2 Refills 04/03/19 Melatonin (MELATONIN) 3 Mg Tablet, 9 MG PO QHS 04/03/19 Sodium Chloride (NASAL MOISTURIZING) 88 Ml [place], 44 ML NS PRN PRN for DISCOMFORT, SPRAY 04/03/19 Duloxetine Hcl (CYMBALTA) 30 Mg Capsule.dr, 90 MG PO QDAY 04/03/19 Omeprazole Magnesium (PRILOSEC OTC) 20 Mg Tablet.dr, 1 TAB PO QDAY, TAB 03/31/19 Multivitamin (MULTIVITAMINS) 1 Each Capsule, 1 CAP PO QDAY, CAPSULE 03/31/19 Ibuprofen (IBUPROFEN) 200 Mg Tablet, 2 TAB PO QAM, TAB 03/31/19 Diphenhydramine Hcl (BENADRYL) 25 Mg Capsule, 1 CAP PO QDAY, CAPSULE 03/31/19 Discontinued Reported Medications Ibuprofen (IBUPROFEN) 800 Mg Tablet, 1 TAB PO QAM, TAB 07/11/18 Multivitamin With Minerals (MULTIPLE VITAMIN) 1 Each Tablet, 1 EACH PO DAILY, TAB 07/11/18 Diphenhydramine Hcl (BENADRYL ALLERGY) 25 Mg Tablet, 25 MG PO Q6-8H PRN for ALLERGY SYMPTOMS, TAB 07/11/18 Omeprazole (PRILOSEC) 20 Mg Capsule.dr, 1 TAB PO QDAY TAKE ONE TABLET BY MOUTH ONCE A DAY 12/05/14 Discontinued Scripts Methocarbamol (ROBAXIN) 500 Mg Tablet, 500 MG PO TID for Muscle Relaxant for 7 Days, #30 TAB Prov:CRISTIAN GRADY MD 07/11/18 Hydrochlorothiazide (HYDROCHLOROTHIAZIDE) 25 Mg Tablet, 1 TAB PO QDAY for 30 Days, #30 TAB Prov:CRISTIAN GRADY MD 07/11/18 Multpiple Antipsychotics Used: No Diet: Regular Activity: As Tolerated Special Instructions: Discharge home. Follow-up with outpatient therapy and medication management. Follow-up with sleep study for possible sleep apnea. Take medications only as prescribed. ABSTAIN FROM ALCOHOL AND ALL ILLICIT SUBSTANCES. Call crisis line or return to Emergency Room for suicidal or homicidal thoughts. ROLLY OTT MD Apr 03, 2019 14:51
== END 2019-04-03 17:45 | disposition home or self-care (01) | DRG 897 ==
LOC: BHS 02:01
PROVIDERS: ADMIT Registered Nurse Psychiatric/Mental Health, Adult; ATTEND Registered Nurse Psychiatric/Mental Health, Adult
DX: F10.230 Alcohol dependence with withdrawal, uncomplicated (principal); R45.851 Suicidal ideations; F34.1 Dysthymic disorder; F43.12 Post-traumatic stress disorder, chronic; G89.29 Other chronic pain; G62.9 Polyneuropathy, unspecified; E66.9 Obesity, unspecified; I10 Essential (primary) hypertension; Z91.5 Personal history of self-harm; Z68.37 Body mass index [BMI] 37.0-37.9, adult; Z81.1 Family history of alcohol abuse and dependence; Z81.8 Family history of other mental and behavioral disorders; Z62.810 Personal history of physical and sexual abuse in childhood; Y90.6 Blood alcohol level of 120-199 mg/100 ml